=== PATIENT | female | born 1995 | race American Indian/Alaskan Native ===

== ENCOUNTER 2020-02-08 02:16 | Emergency (ER) | payer SELFPAY ==
[2020-02-08] MEDS ORDERED: AMOXICILLIN/K CLAV 875/125MG TAB PO ONE (02:46)
[2020-02-08] MEDS ORDERED: IBUPROFEN 600 MG TAB PO ONE (02:46)
[2020-02-08 02:50] VITALS: BP 117/74
--- NOTE | 2020-02-08 02:51 | Emergency Department Report ---
Earache (Pediatric) - [facility] Chief Complaint: Earache Stated Complaint: EAR BLEEDING,RINGING,ABDOMINAL PAIN Time Seen by Provider: 02/08/20 02:45 Duration: 2 Days Location: Left Symptoms: Yes URI, Yes History of Moisture in Ear, No Sore Throat, No Trauma to EAC, No Fever, No Vomiting, No Cough, No Shortness of Breath Other History: 24-year-old -[place]ish female presents to the emergency room complaining of left ear pain and drainage for the last 2 days. Patient states that she had some ringing of her ear and brownish bloody discharge. Patient states that she started off having her sore throat that had improved she did have some nausea but after taking 7 acetaminophen 500 mg yesterday approximately 8 PM. Patient denies any abdominal pain or nausea vomiting at this time. Patient denies any past medical history no known drug allergies and currently taking no medications on a daily basis. ED Review of Systems ROS: Stated complaint: EAR BLEEDING,RINGING,ABDOMINAL PAIN Other details as noted in HPI Peds Earache exam - Exam General: Vital signs noted. No distress. Alert and acting appropriately. Neurologic: Alert and oriented, no deficits. Musculoskeletal: Unremarkable. ED Course Vital Signs 02/08/20 02/08/20 02:24 02:34 Temperature 98.4 F Pulse Rate 98 H Respiratory 16 Rate Blood Pressure 117/74 O2 Sat by Pulse 100 Oximetry ED Medical Decision Making - Medical Decision Making 24-year-old -Swedish female presents to the emergency room complaining of left ear pain and drainage for the last 2 days. Patient states that she had some ringing of her ear and brownish bloody discharge. Patient states that she started off having her sore throat that had improved she did have some nausea but after taking 7 acetaminophen 500 mg yesterday approximately 8 PM. Patient denies any abdominal pain or nausea vomiting at this time. Patient denies any past medical history no known drug allergies and currently taking no medications on a daily basis. Patient be treated with Augmentin 875 p.o. twice daily for 10 days as well as Critical care attestation.: If time is entered above; I have spent that time in minutes in the direct care of this critically ill patient, excluding procedure time. ED Disposition Clinical Impression: Otitis media Disposition: DC- TO HOME OR SELFCARE Is pt being admited?: No Does the pt Need Aspirin: No Condition: Stable Instructions: Otitis Media (ED) Additional Instructions: Complete antibiotics as prescribed use eardrops. Take ibuprofen for pain management. Follow-up with your primary care provider if your symptoms persist or gets worse. Prescriptions: Amoxicillin/K Clav Tab [Augmentin 875MG TAB] 1 each PO BID 10 Days #20 tablet Ciprofloxacin HCl/Dexameth [Ciprodex Otic Suspension] 2 drop AU BID 7 Days #7.5 ml Ibuprofen [Motrin 600 MG tab] 600 mg PO Q8H PRN #15 tablet PRN Reason: Pain , Severe (7-10) Referrals: [facility] [Provider Group] - 3-5 Days
== END 2020-02-08 03:21 | disposition home or self-care (01) ==
LOC: ED 02:16
DX: H66.92 Otitis media, unspecified, left ear (principal)
CPT/HCPCS: 99282